=== PATIENT | female | born 1980 | race Two or more races ===

== ENCOUNTER 2025-03-22 14:32 | Emergency (ER) | payer MEDICAID, OTHER ==
[~2025-03-22] VITALS: Ht 170.2 cm; Wt 78.7 kg
[2025-03-22 15:00] VITALS: PULSE 70; RESP 13; O2SAT 99
--- NOTE | 2025-03-22 15:09 | ED.PDOC ---
History of Present Illness(N HPI Comments 44 y/o F, presents to the ED for CC of face pain. Patient states, she was diagnosed with shingles on Wednesday (03/19/25) and has now been experiencing right-sided facial pain with associated difficulty swallowing x2days. Patient endorses, starting course of antiviral medication on 03/20/25 and is currently taking acyclovir 5x daily. Patient has notable vesicular rash to her right forehead and facial region with swelling to the right orbital region. Patient denies vision changes or sensitivity to light. Chief Complaint: Face pain Time Seen by MD: 15:00 History of Present Illness: Nurses Notes, Medications, Allergies Allergies: Coded Allergies: No Known Drug Allergy (Verified Allergy, Unknown, 03/22/25) Information Source: Patient Mode of Arrival: Ambulatory Severity: Moderate Timing: Days Duration: Since onset Prehospital treatment: None Location: Face Developed: Difficult Swallowing Associated Signs and Symptoms: Facial Swelling Past Medical History PAST MEDICAL HISTORY: Denies Surgical History: Denies all surgeries STOCK AND STATION AGENT History: Denies all STOCK AND STATION AGENT Hx Family History Family History: Unknown Social History Smoker: Non-Smoker Alcohol: Denies ETOH Use Drugs: Denies Drug Use Lives In: Home Constitutional: denies: chills, diaphoresis, fatigue, fever, malaise, sweats, weakness, others EENTM: reports: others (facial pain); denies: blurred vision, double vision, ear bleeding, ear discharge, ear drainage, ear pain, ear ringing, eye pain, eye redness, hearing loss, mouth pain, mouth swelling, nasal discharge, nose bl eeding, nose congestion, nose pain, photophobia, tearing, throat pain, throat swelling, voice changes Respiratory: denies: cough, hemoptysis, orthopnea, SOB at rest, shortness of breath, SOB with excertion, stridor, wheezing, others Cardiovascular: denies: chest pain, dizzy spells, diaphoresis, Dyspnea on exertion, edema, irregular heart beat, left arm pain, lightheadedness, palpitations, PND, syncope, others Gastrointestinal: denies: abdomen distended, abdominal pain, blood streaked bowels, constipated, diarrhea, dysphagia, difficulty swallowing, hematemesis, melena, nausea, poor appetite, poor fluid intake, rectal bleeding, rectal pain, vomiting, others Genitourinary: denies: abnormal vagina bleeding, burning, dyspareunia, dysuria, flank pain, frequency, hematuria, incontinence, pain, , vagina discharge, urgency, others Neurological: denies: dizziness, fainting, headache, left sided numbness, left sided weakness, numbness, paresthesia, pre-existing deficit, right sided numbness, right sided weakness, seizure, speech problems, tingling, tremors, weakness, others Musculoskeletal: denies: back pain, gout, joint pain, joint swelling, muscle pain, muscle stiffness, neck pain, others Integumetry: denies: bruises, change in color, change in hair/nails, dryness, laceration, lesions, lumps, rash, wounds, others Allergic/Immunocompromised: denies: Difficulty Healing, Frequent Infections, Hives, Itching, others Hematologic/Lymphatic: denies: anemia, blood clots, easy bleeding, easy bruising, swollen glands, others Endocrine: denies: excessive hunger, excessive sweating, excessive thirst, excessive urination, flushing, intolerance to cold, intolerance to heat, unexplained weight gain, unexplained weight loss, others Psychiatric: denies: anxiety, bipolar disorder, depression, hopeless, panic disorder, schizophrenia, sleepless, suicidal, others All Other Systems: Reviewed and Negative Physical Exam General Appearance: No Apparent Distress, Normal HEENT: Normal ENT Inspection, Pharynx Normal Neck: Full Range of Motion, Non-Tender, Normal, Normal Inspection Respiratory: Chest Non-Tender, Lungs Clear, No Accessory Muscle Use, No Respiratory Distress, Normal Breath Sounds Cardiovascular: No Edema, No Murmur, No Gallop, Normal Peripheral Pulses, Regular Rate/Rhythm Breast Exam: Deferred Gastrointestinal: No Organomegaly, Non Tender, No Pulsatile Mass, Normal Bowel Sounds, Soft Genitalia: Deferred Pelvic: Deferred Rectal: Deferred Extremities: No calf tenderness, Normal capillary refill, Normal inspection, Normal range of motion, Non-tender, No pedal edema Musculoskeletal : Apperance: Normal Neurologic: Alert, executive [employer] II-XII nml as Tested, No Motor Deficits, Normal Affect, Normal Mood, No Sensory Deficits Cerebellar Function: Normal Reflexes: Normal Skin: Dry, Normal Color, Rash (vesicular lesions to the right forehead and right facial region, conjunctiva clear, sclera clear), Warm Lymphatic: No Adenopathy Was a procedure done? Was a procedure done?: No Differential Diagnosis (INTG) Differential Diagnosis: Herpes Zoster/Simplex X-Ray, Labs, Meds, VS Vital Signs Date Time Temp Pulse Resp B/P (MAP) Pulse Ox O2 Delivery O2 Flow Rate FiO2 03/22/25 15:00 98.9 70 13 132/75 (94) 99 98.9 03/22/25 15:00 70 13 99 Room Air* 0 21 03/22/25 14:35 98.3 83 16 139/95 98 98.3 Current Medications Medications (Trade) Dose Ordered Sig/Tracee Route Start Time Stop Time Status Last Admin Ceftriaxone Sodium 50 ml @ 100 mls/hr ONCE ONCE IV 03/22/25 15:30 03/22/25 15:59 DC 03/22/25 16:46 Acyclovir Sodium 800 mg/Sodium Chloride 266 ml @ 266 mls/hr ONCE ONCE IV 03/22/25 15:30 03/22/25 16:29 DC 03/22/25 17:15 Acetaminophen/ Hydrocodone Bitart ([place] 5/325MG Tab) 1 tab ONCE ONCE PO 03/22/25 16:30 03/22/25 16:31 DC 03/22/25 17:15 X-Ray, Labs, Meds, VS Comment Imaging was reviewed by this provider, there is no obvious pathological or acute disease process. Pending radiology review Labs were reviewed by this provider, no abnormalities Vital signs reviewed by this provider, clinically stable Time of 1ST Reevaluation: 15:30 Reevaluation 1ST: Unchanged Patient Education/Counseling: Diagnosis, Treatment, Need For Follow Up (Follow up with PCP next available appointment. Return to the emergency department if symptoms worsen.) Family Education/Counseling: No Family Present SEPSIS Sepsis Screen Date sepsis recognized/suspect: Mar 22, 2025 Time Sepsis recognized/suspect: 1434 Recent Procedure: No On Antibiotic Therapy: Yes Respiratory Rate >20: No Heart Rate >90: No Temp<36 C (96.8 F) or >38.3 C: No SBP <90 or MAP <65 mmHG: No New Acute Mental Status Change: No Is the patient on CPAP, BIPAP,: No Vital Signs Date Time Temp Pulse Resp B/P (MAP) Pulse Ox O2 Delivery O2 Flow Rate FiO2 03/22/25 15:00 98.9 70 13 132/75 (94) 99 98.9 03/22/25 15:00 70 13 99 Room Air* 0 21 03/22/25 14:35 98.3 83 16 139/95 98 98.3 Medications Medications Dose Ordered Sig/Tracee Route Start Time Stop Time Status Last Admin Dose Admin Acetaminophen/ Hydrocodone Bitart 1 tab ONCE ONCE PO 03/22/25 16:30 03/22/25 16:31 DC 03/22/25 17:15 Acyclovir Sodium 800 mg/Sodium Chloride 266 ml @ 266 mls/hr ONCE ONCE IV 03/22/25 15:30 03/22/25 16:29 DC 03/22/25 17:15 Ceftriaxone Sodium 50 ml @ 100 mls/hr ONCE ONCE IV 03/22/25 15:30 03/22/25 15:59 DC 03/22/25 16:46 Departure 1 Departure Time of Disposition: 18:35 Impression: Primary Impression: Shingles rash Qualified Codes: B02.9 - Zoster without complications Disposition: HOME / SELF CARE / HOMELESS Condition: Stable e-Prescriptions Hydrocodone-Acetaminophen (Hydrocodone Bitartrate/AC 5-325 mg) 1 Tab Tab 1 TAB PO TID PRN, #25 TAB Prov: TAMMI RIVERAP 03/22/25 Acyclovir (Acyclovir) 800 Mg Tab 800 MG PO 5XD for 10 Days, #50 TAB Prov: TAMMI RIVERAP 03/22/25 Discharged With: Self Critical Care Note Critical Care Time?: No Stability Stability form required: No Heart Score Heart Score: Heart Score Response (Comments) Value History N/A 0 EKG N/A 0 Age N/A 0 Risk Factors N/A 0 Troponin N/A 0 Total 0 I personally scribed for TAMMI RIVERAP ([email or web address]) on 03/22/25 at 15:09. Electronically submitted by Cheryl Delaney ([email or web address]). I personally scribed for TAMMI RIVERA BIN PACKER ([email or web address]) on 03/22/25 at 15:23. Electronically submitted by Cheryl Delaney ([email or web address]). TAMMI RIVERA Mar 22, 2025 15:09
[2025-03-22] MEDS ORDERED: HYDROmorphone HCL 2 MG/ML VL/or syr IV ONE ×2 (15:30→16:15)
[2025-03-22] MEDS: HYDROcodone-ACET 5/325MG TAB PO ONE (17:15)
[2025-03-22] MEDS: ACYCLOVIR SOD 50MG/ML 800 MG in SODIUM CHL 0.9% 250 ML IV ONE (17:15)
[2025-03-22] MEDS: HYDROcodone-ACET 5/325MG TAB ONE (17:16)
[2025-03-22] MEDS ORDERED: ACYC1TAB3 PO (18:36)
[2025-03-22] MEDS ORDERED: HYDR-4902 PO (18:36)
[2025-03-22 19:00] VITALS: BP 97/62; PULSE 71; RESP 12; O2SAT 100
== END 2025-03-22 19:53 | disposition home or self-care (01) ==
LOC: ER 14:32
DX: B02.9 Zoster without complications (principal)
CPT/HCPCS: 96365; 96366; 96368; 99284; J0133; J0696; J7050